=== PATIENT | female | born 1995 | race African-American/Black ===

== ENCOUNTER 2023-06-08 07:40 | Emergency (ER) | payer SELFPAY ==
[2023-06-08 07:47] VITALS: BP 129/69; PULSE 102; RESP 14; TEMP 37.1; O2SAT 100
--- NOTE | 2023-06-08 07:57 | ECG_ITS ---
Measurements Intervals [place] Rate: 79 P: 47 MI: 146 QRS: 29 QRSD: 74 T: 29 QT: 356 QTc: 409 Interpretive Statements SINUS RHYTHM NO PREVIOUS ECG AVAILABLE FOR COMPARISON Electronically Signed On 06-08-2023 12:57:34 CDT by Anita Sifuentes M.D.
[2023-06-08 08:11] LABS: Appearance Urine Cloudy (Clear); Bacteria Urine None Seen /hpf; Bilirubin Urine Negative (Negative); Blood Urine Negative (Negative); Color Urine Yellow (Yellow); Glucose Urine UA Negative (Negative); Ketones Urine Negative (Negative); Leukocyte Esterase Ur 2+ LEU/UL (Negative); Nitrate Urine Negative (Negative); Non Pathogenic Casts 0-2; Protein Urine Negative (Negative); RBC Urine 0-2 /hpf (0-2); Specific Grav Ur 1.023 (1.001-1.035); Squamous Epithelial Cell Urine Occasional /hpf (Few); WBC Urine 21-50 /hpf; pH Urine 7.5 (5.0-9.0)
[2023-06-08 08:13] LABS: Add Urine Microscopic? YES
[2023-06-08 08:23] LABS: Glucose Point of Care 128 mg/dl (65-105)
--- NOTE | 2023-06-08 08:56 | ED.GENADULT ---
HPI - General Adult General Chief complaint: Unspecified Stated complaint: CHERY, fatigue, dizziness Time Seen by Provider: 06/08/23 07:57 History of Present Illness HPI narrative: Patient was otherwise healthy presents here stating that she has not been feeling well and she is worried she may have an infection somewhere, she does have a tooth ache, otherwise she denies any dysuria, cough, runny nose, nausea or vomiting. She states that yesterday when she was at work she had not eaten breakfast, and then had checked her blood sugar and it was low at 60, and that her blood pressure was high at 130/80. Related Data Allergies Allergy/AdvReac Type Severity Reaction Status Date / Time No Known Allergies Allergy Verified 06/08/23 07:56 Review of Systems Review of Systems: CONST: No fever. HEENT: No sore throat; does endorse toothache C/V: No chest pain RESP: No cough GI: No nausea or vomiting : No dysuria. M/S: No joint pain. SKIN: No rash. NEURO: [No headache or focal numbness or weakness] PSYCH: [No depression] Exam Narrative: EXAMINATION OF ORGAN SYSTEMS/BODY AREAS: Constitutional: Vital signs per nursing GENERAL:[No acute distress, non-toxic appearing.] HEAD: Normal with no signs of head trauma. EYES: EOMI, conjunctiva normal ENT: Hearing grossly intact; airway intact, dental caries top molars LUNGS: Nonlabored breathing. HEART: [Regular rate and rhythm] ABD: [Soft], [nontender to palpation] EXT: Normal range of motion SKIN: [No rashes or lesions.] NEURO: [Alert and oriented x 3. No gross focal sensory or strength deficits.] PSYCH: Normal affect Course Vital Signs Vital signs: Vital Signs Temperature 98.7 F 06/08/23 07:47 Pulse Rate 102 H 06/08/23 07:47 Respiratory Rate 14 06/08/23 07:47 Blood Pressure 129/69 06/08/23 07:47 Pulse Oximetry 100 06/08/23 07:47 Oxygen Delivery Room Air 06/08/23 07:47 Temperature 98.7 F 06/08/23 07:47 Pulse Rate 90 06/08/23 09:15 Respiratory Rate 16 06/08/23 09:15 Blood Pressure 125/76 06/08/23 09:15 Pulse Oximetry 99 06/08/23 09:15 Oxygen Delivery Room Air 06/08/23 07:47 Medical Decision Making [facility] Narrative Medical decision making narrative: Patient presenting with dental pain, sensation of illness, denies any other focal symptoms or complaints. Since she has no focal symptoms I will obtain glucose here which is normal, test is negative, EKG is normal without any signs of ischemia, UA showing WBCs and leuks which she states is normal for her, denies any concern for STDs, gonorrhea chlamydia sent with her consent and are negative, I have started her on antibiotics she is stable for discharge at this point with outpt mgmt she is agreeable to this Vital Signs Vital Signs: Vital Signs Temperature 98.7 F 06/08/23 07:47 Pulse Rate 102 H 06/08/23 07:47 Respiratory Rate 14 06/08/23 07:47 Blood Pressure 129/69 06/08/23 07:47 Pulse Oximetry 100 06/08/23 07:47 Oxygen Delivery Room Air 06/08/23 07:47 Temperature 98.7 F 06/08/23 07:47 Pulse Rate 90 06/08/23 09:15 Respiratory Rate 16 06/08/23 09:15 Blood Pressure 125/76 06/08/23 09:15 Pulse Oximetry 99 06/08/23 09:15 Oxygen Delivery Room Air 06/08/23 07:47 Lab Data Labs: Lab Results 06/08/23 06/08/23 Range/Units 07:57 08:12 POC Capillary Glucose 128 H (65-105) mg/dl Urine Color Yellow (Yellow) Urine Appearance Cloudy H (Clear) Urine pH 7.5 (5.0-9.0) Ur Specific [place] 1.023 (1.001-1.035) Urine Protein Negative (Negative) mg/dL Urine Glucose (UA) Negative (Negative) mg/dL Urine Ketones Negative (Negative) mg/dL Ur Blood (Man) Negative (Negative) Urine Nitrate Negative (Negative) Urine Bilirubin Negative (Negative) Urine Urobilinogen 1.0 (<2.0) mg/dL Leukocyte Esterase Rfl 2+ H (Negative) TONYA/UL Urine RBC 0-2 (0-2) /hpf Urine WBC 21-50 H /
[2023-06-08 09:15] VITALS: BP 125/76; PULSE 90; RESP 16; O2SAT 99
[2023-06-08 12:12] LABS: Chlamydia trachomatis NOT DETECTED (NOT DETECTE); Neisseria gonorrhoeae PCR NOT DETECTED (NOT DETECTE)
== END 2023-06-08 09:15 | disposition home or self-care (01) ==
PROVIDERS: Emergency Provider Emergency Medicine
DX: K02.9 Dental caries, unspecified (principal); R82.81 Pyuria
CPT/HCPCS: 81001; 81025; 82948; 87086; 87491; 87591; 93005; 99284

== ENCOUNTER 2023-12-27 09:02 | Emergency (ER) | payer OTHER, SELFPAY ==
[2023-12-27 09:14] VITALS: BP 116/62; PULSE 90; RESP 18; TEMP 36.8; O2SAT 100
--- NOTE | 2023-12-27 09:25 | ED.GENADULT ---
HPI - General Adult General Chief complaint: Ear Stated complaint: both ears muffed ,tooth pain Time Seen by Provider: 12/27/23 09:18 Source: patient and RN notes reviewed Mode of arrival: ambulatory Limitations: no limitations History of Present Illness HPI narrative: Patient presents today complaining of a 10 day history of bilateral ear muffling and right top and bottom wisdom tooth pain as well as intermittent facial swelling. She currently rates her pain 3/10 and has tried no [id number] interventions prior to arrival. Denies fever, shortness of breath, difficulty swallowing. She is due to have her wisdom teeth removed next month Related Data Allergies Allergy/AdvReac Type Severity Reaction Status Date / Time No Known Allergies Allergy Verified 12/27/23 09:12 Review of Systems Review of Systems: CONSTITUTIONAL: Denies body aches, fever, chills, or sweats. EYES: Denies visual changes, redness, or discharge. ENT: Denies rhinorrhea, congestion, sore throat. + bilateral ear clogging, tooth pain facial swelling. CARDIOVASCULAR: Denies chest pain, palpitations, or edema. RESPIRATORY: Denies cough or dyspnea. GASTROINTESTINAL: Denies abdominal pain, nausea, vomiting, or diarrhea. GENITOURINARY: Denies dysuria or hematuria. SKIN: Denies rash, itching, or wounds. MUSCULOSKELETAL: Denies back pain, joint pain, or myalgia. NEUROLOGIC: Denies headache, numbness, tingling, or weakness. PSYCH: Denies depression or anxiety. PMFSH Comments At time of signature, I have reviewed and agree with nursing past medical, surgical, social and family history unless otherwise noted. Please see nursing chart for further information. There is no relevant family history pertinent to the presenting complaint Exam Narrative: GENERAL: Well-appearing, well-nourished, and in no acute distress. HEAD: Normocephalic, atraumatic. EYES: EOMI. No redness or drainage. Conjunctivae normal. ENT: Mucous membranes pink and moist. Nares clear. No rhinorrhea. TMs normal bilaterally. Throat normal. Uvula midline. No trismus. Mild gum swelling surrounding tooth 1 and 32. No obvious periapical abscess. No facial swelling noted. NECK: Normal AROM. EXTREMITIES: Normal range of motion. No edema. SKIN: Warm, dry, no rash. Capillary refill normal. Normal skin turgor. NEURO: No focal deficits. Alert and oriented x3. Gait steady. PSYCH: Normal affect. No signs of depression or anxiety. Course Course Level of Care: Express Care Visit Vital Signs Vital signs: Vital Signs Temperature 98.2 F 12/27/23 09:14 Pulse Rate 90 12/27/23 09:14 Respiratory Rate 18 12/27/23 09:14 Blood Pressure 116/62 12/27/23 09:14 Pulse Oximetry 100 12/27/23 09:14 Oxygen Delivery Room Air 12/27/23 09:14 Temperature 98.2 F 12/27/23 09:14 Pulse Rate 90 12/27/23 09:14 Respiratory Rate 18 12/27/23 09:14 Blood Pressure 116/62 12/27/23 09:14 Pulse Oximetry 100 12/27/23 09:14 Oxygen Delivery Room Air 12/27/23 09:14 Reviewed Medical Decision Making MDM Narrative Medical decision making narrative: Patient will be treated with a course of amoxicillin for possible tooth infection. She will also be given a prescription for diclofenac as an anti-inflammatory. She will follow-up with her dentist/oral surgeon next month for extraction. Anticipatory guidance given. Differential Diagnosis Differential Diagnosis: Dental abscess, gingivitis, infected dental caries, otitis media, otitis externa, ruptured TM, serous otitis Vital Signs Vital Signs: Vital Signs Temperature 98.2 F 12/27/23 09:14 Pulse Rate 90 12/27/23 09:14 Respiratory Rate 18 12/27/23 09:14 Blood Pressure 116/62 12/27/23 09:14 Pulse Oximetry 100 12/27/23 09:14 Oxygen Delivery Room Air 12/27/23 09:14 Temperature 98.2 F 12/27/23 09:14 Pulse Rate 90 12/27/23 09:14 Respiratory Rate 18 12/27/23 09:14 Blood Pressure 116/62 05/1
== END 2023-12-27 09:30 | disposition home or self-care (01) ==
PROVIDERS: Emergency Provider Nurse Practitioner; PCP Registered Nurse
DX: K08.89 Other specified disorders of teeth and supporting structures (principal)
CPT/HCPCS: 99213; G0463